=== PATIENT | male | born 1965 | race African-American/Black ===

== ENCOUNTER 2021-07-29 02:29 | Inpatient (IN) | payer MEDICAID, OTHER ==
[~2021-07-29] VITALS: Ht 170.2 cm; Wt 92.1 kg
[2021-07-29] MEDS ORDERED: SODIUM CHLORIDE 0.9% 1,000 ML IV ONE (03:00)
[2021-07-29 03:06] LABS: BASOPHILS % 0.4 % (0.0-2.0); EOSINOPHILS % 0.1 % (0.0-5.0); HEMATOCRIT. 41.3 % (42.0-52.0); HEMOGLOBIN. 14.1 g/dL (14.0-18.0); LYMPHOCYTES % 7.8 % (20.0-50.0); MEAN CORPUSCULAR HEMOGLOBIN 30.8 pg (28.0-32.0); MEAN CORPUSCULAR VOLUME 90.3 fL (80.0-94.0); NEUTROPHILS % 84.7 % (40.0-76.0); PLATELET 327 x1000/uL (130-400); RED BLOOD CELL COUNT 4.58 mill/uL (4.7-6.1); RED CELL DISTRIBUTION WIDTH 13.2 % (11.6-14.6)
[2021-07-29 03:17] LABS: CHLORIDE 99 mEq/L (98-107)
[2021-07-29 03:26] LABS: ETHANOL BLOOD < 10 mg/dL
[2021-07-29 04:53] LABS: CLARITY URINE CLEAR (CLEAR); COLOR URINE YELLOW (YELLOW); KETONES URINE NEGATIVE (NEGATIVE); LEUKOCYTE ESTERASE URINE 3+ (NEGATIVE); NITRITE URINE NEGATIVE (NEGATIVE); OCCULT BLOOD URINE TRACE (NEGATIVE); PROTEIN URINE TRACE (NEGATIVE); SPECIFIC GRAVITY URINE 1.009 (1.005-1.030)
[2021-07-29 05:20] LABS: *AMPHETAMINES SCREEN URINE NEGATIVE (NEGATIVE); *BARBITURATES SCREEN URINE NEGATIVE (NEGATIVE); *BENZODIAZEPINES SCREEN URINE NEGATIVE (NEGATIVE); *COCAINE SCREEN URINE NEGATIVE (NEGATIVE); CANNABINOID URINE SCREEN NEGATIVE (NEGATIVE); METHADONE URINE SCREEN NEGATIVE (NEGATIVE); OPIATES URINE SCREEN NEGATIVE (NEGATIVE); PHENCYCLIDINE URINE SCREEN NEGATIVE (NEGATIVE)
[2021-07-29] MEDS ORDERED: ACETAMINOPHEN 325MG TABLET PO ONE (05:45)
[2021-07-29] MEDS ORDERED: CEFTRIAXONE 1 G PREMIX 50 ML IV NR (06:15)
[2021-07-29] MEDS ORDERED: DOCUSATE SODIUM 100MG CAPSULE PO PRN (11:00)
[2021-07-29] MEDS ORDERED: GUAIFENESIN 200MG/10ML SUGAR FREE UDC PO PRN (11:00)
[2021-07-29] MEDS ORDERED: MAGNESIUM/ALUMINUM HYDROXIDE/SIMETHICONE 30ML UDC PO PRN (11:00)
[2021-07-29] MEDS ORDERED: LORAZEPAM 2MG/ML CPJ IV PRN (11:00)
[2021-07-29] MEDS ORDERED: NA PHOS,M-B/NA PHOS,DI-BA ENEMA 118ML PR PRN (11:00)
[2021-07-29] MEDS ORDERED: ONDANSETRON HCL 4MG/2ML INJ IV PRN (11:00)
[2021-07-29] MEDS ORDERED: DIPHENHYDRAMINE 50MG/ML VIAL IV PRN (11:00)
[2021-07-29] MEDS ORDERED: IPRATROPIUM/ALBUTEROL 0.5-3(2.5)MG/3ML NEB NEB PRN (11:00)
[2021-07-29] MEDS: SODIUM CHLORIDE 0.45% 1,000 ML IV SCH ×4 (11:23→11:59)
[2021-07-29 12:00] VITALS: BP 142/74
[2021-07-29] MEDS ORDERED: ENOXAPARIN 40MG/0.4ML SYR SUBCUT SCH (12:00)
[2021-07-29 12:59] LABS: CHLORIDE 100 mEq/L (98-107)
[2021-07-29 13:08] LABS: HDL CHOLESTEROL 28 mg/dL (40-59); LDL CHOLESTEROL 119 mg/dL (5-100)
[2021-07-29] MEDS: MORPHINE SULFATE 2 MG/ML CPJ (NOT FOR IM USE) IV PRN ×2 (13:23→18:17)
[2021-07-29] MEDS ORDERED: TAMS-11 MT (14:54)
[2021-07-29] MEDS ORDERED: PHEN300C6 PO (15:00)
[2021-07-29] MEDS ORDERED: METO-539 PO (15:01)
[2021-07-29] MEDS ORDERED: FINA5TAB11 PO (15:03)
[2021-07-29 16:00] VITALS: BP 139/72
[2021-07-29] MEDS: ENOXAPARIN 30MG/0.3ML SYR SUBCUT SCH (16:21)
[2021-07-29] MEDS: HYDROCODONE/ACETAMINOPHEN 5/325MG TABLET PO PRN ×2 (16:21→20:38)
[2021-07-29 20:00] VITALS: BP 170/113
[2021-07-29] MEDS: METOPROLOL TARTRATE 25MG TABLET PO SCH (20:38)
[2021-07-29] MEDS ORDERED: NALOXONE HCL 0.4MG/ML VIAL IV PRN (21:30)
[2021-07-30] VITALS: BP 162/101
[2021-07-30] MEDS: MORPHINE SULFATE 2 MG/ML CPJ (NOT FOR IM USE) IV PRN ×2 (00:54→05:36)
[2021-07-30] MEDS: CLONIDINE 0.1MG TABLET PO PRN (01:15)
[2021-07-30] MEDS: HYDRALAZINE 20MG/ML VIAL IV PRN (03:52)
[2021-07-30] MEDS: ACETAMINOPHEN 325MG TABLET PO PRN (05:53)
[2021-07-30 07:04] LABS: BASOPHILS % 0.2 % (0.0-2.0); EOSINOPHILS % 0.1 % (0.0-5.0); HEMATOCRIT. 40.9 % (42.0-52.0); HEMOGLOBIN. 13.7 g/dL (14.0-18.0); LYMPHOCYTES % 8.4 % (20.0-50.0); MEAN CORPUSCULAR HEMOGLOBIN 30.8 pg (28.0-32.0); MEAN CORPUSCULAR VOLUME 92.1 fL (80.0-94.0); MEAN PLATELET VOLUME 10.1 fl (7.4-10.4); NEUTROPHILS % 77.3 % (40.0-76.0); PLATELET 264 x1000/uL (130-400); RED BLOOD CELL COUNT 4.44 mill/uL (4.7-6.1); RED CELL DISTRIBUTION WIDTH 13.6 % (11.6-14.6)
[2021-07-30 07:21] LABS: CHLORIDE 94 mEq/L (98-107)
[2021-07-30 08:00] VITALS: BP 135/87
[2021-07-30] MEDS: ENOXAPARIN 30MG/0.3ML SYR SUBCUT SCH ×2 (08:40→20:10)
[2021-07-30] MEDS: METOPROLOL TARTRATE 25MG TABLET PO SCH (08:40)
[2021-07-30] MEDS: ASPIRIN 81MG EC TABLET PO SCH (08:40)
[2021-07-30] MEDS ORDERED: POTASSIUM CHLORIDE 20MEQ TABLET SR PO SCH (11:15)
[2021-07-30 12:00] VITALS: BP 146/100
[2021-07-30] MEDS: HYDROCODONE/ACETAMINOPHEN 5/325MG TABLET PO PRN ×2 (12:39→20:09)
[2021-07-30] MEDS: PIPERACILLIN/TAZOBACTAM 3.375 G in DEXTROSE 5% WATER 50 ML IV SCH ×2 (15:31→21:13)
[2021-07-30 16:00] VITALS: BP 148/98
[2021-07-30 20:00] VITALS: BP 166/99
[2021-07-30] MEDS: PHENYTOIN SODIUM EXTENDED 100MG CAPSULE PO SCH (20:08)
[2021-07-30] MEDS: METOPROLOL TARTRATE 50MG TABLET PO SCH (20:10)
[2021-07-31] VITALS (7 sets, daily range): BP systolic 132–158; BP diastolic 84–102
[2021-07-31] MEDS: HYDROCODONE/ACETAMINOPHEN 5/325MG TABLET PO PRN ×2 (01:24→21:03)
[2021-07-31] MEDS: CLONIDINE 0.1MG TABLET PO PRN (01:29)
[2021-07-31] MEDS: PIPERACILLIN/TAZOBACTAM 3.375 G in DEXTROSE 5% WATER 50 ML IV SCH ×3 (05:29→21:04)
[2021-07-31] MEDS: ASPIRIN 81MG EC TABLET PO SCH (09:05)
[2021-07-31] MEDS: METOPROLOL TARTRATE 50MG TABLET PO SCH ×3 (09:05→21:01)
[2021-07-31] MEDS: ENOXAPARIN 30MG/0.3ML SYR SUBCUT SCH ×2 (09:06→21:00)
[2021-07-31] MEDS ORDERED: METOPROLOL TARTRATE 50MG TABLET PO SCH (10:45)
[2021-07-31] MEDS: PHENYTOIN SODIUM EXTENDED 100MG CAPSULE PO SCH (21:03)
[2021-07-31] MEDS: SODIUM CHLORIDE 0.45% 1,000 ML IV SCH (21:17)
[2021-08-01] VITALS: BP 142/99
[2021-08-01] MEDS: HYDROCODONE/ACETAMINOPHEN 5/325MG TABLET PO PRN ×5 (01:55→22:37)
[2021-08-01 04:00] VITALS: BP 147/104
[2021-08-01] MEDS: PIPERACILLIN/TAZOBACTAM 3.375 G in DEXTROSE 5% WATER 50 ML IV SCH ×3 (05:28→22:36)
[2021-08-01] MEDS: METOPROLOL TARTRATE 50MG TABLET PO SCH ×3 (05:28→22:36)
[2021-08-01] MEDS: MORPHINE SULFATE 2 MG/ML CPJ (NOT FOR IM USE) IV PRN (05:29)
[2021-08-01 08:00] VITALS: BP 143/97
[2021-08-01] MEDS: ENOXAPARIN 30MG/0.3ML SYR SUBCUT SCH ×2 (09:38→22:38)
[2021-08-01] MEDS: ASPIRIN 81MG EC TABLET PO SCH (09:40)
[2021-08-01 10:19] LABS: HEMATOCRIT. 37.6 % (42.0-52.0); HEMOGLOBIN. 12.4 g/dL (14.0-18.0); MEAN CORPUSCULAR HEMOGLOBIN 30.5 pg (28.0-32.0); MEAN CORPUSCULAR VOLUME 92.7 fL (80.0-94.0); MEAN PLATELET VOLUME 10.2 fl (7.4-10.4); PLATELET 291 x1000/uL (130-400); RED BLOOD CELL COUNT 4.06 mill/uL (4.7-6.1); RED CELL DISTRIBUTION WIDTH 13.6 % (11.6-14.6)
[2021-08-01 11:02] LABS: CHLORIDE 92 mEq/L (98-107)
[2021-08-01] MEDS ORDERED: POTASSIUM CHLORIDE 20MEQ TABLET SR PO NR (11:30)
[2021-08-01 12:00] VITALS: BP 135/104
[2021-08-01 12:52] LABS: PLATELET ESTIMATE NORMAL
[2021-08-01 16:00] VITALS: BP 154/97
[2021-08-01] MEDS: SODIUM CHLORIDE 0.45% 1,000 ML IV SCH (18:21)
[2021-08-01 20:00] VITALS: BP 129/89
[2021-08-01] MEDS: ATORVASTATIN CALCIUM 10MG TABLET PO SCH (22:36)
[2021-08-01] MEDS: PHENYTOIN SODIUM EXTENDED 100MG CAPSULE PO SCH (22:38)
[2021-08-02] VITALS: BP 141/89
[2021-08-02] MEDS: HYDROCODONE/ACETAMINOPHEN 5/325MG TABLET PO PRN ×3 (02:51→13:09)
[2021-08-02 04:00] VITALS: BP 135/85
[2021-08-02] MEDS: PIPERACILLIN/TAZOBACTAM 3.375 G in DEXTROSE 5% WATER 50 ML IV SCH ×3 (06:43→21:11)
[2021-08-02] MEDS: METOPROLOL TARTRATE 50MG TABLET PO SCH ×3 (06:44→21:13)
[2021-08-02 07:17] LABS: HEMATOCRIT. 37.6 % (42.0-52.0); HEMOGLOBIN. 12.6 g/dL (14.0-18.0); MEAN CORPUSCULAR HEMOGLOBIN 30.5 pg (28.0-32.0); MEAN CORPUSCULAR VOLUME 91.4 fL (80.0-94.0); MEAN PLATELET VOLUME 10.3 fl (7.4-10.4); PLATELET 313 x1000/uL (130-400); RED BLOOD CELL COUNT 4.12 mill/uL (4.7-6.1); RED CELL DISTRIBUTION WIDTH 13.3 % (11.6-14.6)
[2021-08-02 08:00] VITALS: BP 137/93
[2021-08-02 08:00] LABS: CHLORIDE 90 mEq/L (98-107)
[2021-08-02] MEDS: ASPIRIN 81MG EC TABLET PO SCH (08:33)
[2021-08-02] MEDS: ENOXAPARIN 30MG/0.3ML SYR SUBCUT SCH ×2 (08:34→21:11)
[2021-08-02 10:40] LABS: ATYPICAL LYMPHOCYTES 1; PLATELET ESTIMATE NORMAL
[2021-08-02 12:00] VITALS: BP 140/82
[2021-08-02] MEDS: SODIUM CHLORIDE 0.45% 1,000 ML IV SCH (15:25)
[2021-08-02 16:00] VITALS: BP 135/75
[2021-08-02 20:00] VITALS: BP 159/102
[2021-08-02] MEDS: PHENYTOIN SODIUM EXTENDED 100MG CAPSULE PO SCH (21:10)
[2021-08-02] MEDS: ATORVASTATIN CALCIUM 10MG TABLET PO SCH (21:10)
[2021-08-02] MEDS: ACETAMINOPHEN 325MG TABLET PO PRN (21:14)
[2021-08-02] MEDS: MORPHINE SULFATE 2 MG/ML CPJ (NOT FOR IM USE) IV PRN (21:22)
[2021-08-03] VITALS: BP 140/92
[2021-08-03] MEDS: HYDROCODONE/ACETAMINOPHEN 5/325MG TABLET PO PRN ×4 (01:13→20:07)
[2021-08-03 04:00] VITALS: BP 144/71
[2021-08-03] MEDS: PIPERACILLIN/TAZOBACTAM 3.375 G in DEXTROSE 5% WATER 50 ML IV SCH ×3 (06:00→21:38)
[2021-08-03 06:26] LABS: CHLORIDE 93 mEq/L (98-107)
[2021-08-03 06:28] LABS: HEMATOCRIT. 39.3 % (42.0-52.0); HEMOGLOBIN. 13.3 g/dL (14.0-18.0); MEAN CORPUSCULAR HEMOGLOBIN 30.8 pg (28.0-32.0); MEAN CORPUSCULAR VOLUME 91.3 fL (80.0-94.0); MEAN PLATELET VOLUME 10.3 fl (7.4-10.4); PLATELET 393 x1000/uL (130-400); RED BLOOD CELL COUNT 4.31 mill/uL (4.7-6.1); RED CELL DISTRIBUTION WIDTH 13.5 % (11.6-14.6)
[2021-08-03] MEDS: METOPROLOL TARTRATE 50MG TABLET PO SCH ×3 (06:51→21:39)
[2021-08-03 08:00] VITALS: BP 163/104
[2021-08-03] MEDS: ENOXAPARIN 30MG/0.3ML SYR SUBCUT SCH ×2 (09:03→21:39)
[2021-08-03] MEDS: ASPIRIN 81MG EC TABLET PO SCH (09:03)
[2021-08-03] MEDS: CLONIDINE 0.1MG TABLET PO PRN (09:03)
[2021-08-03] MEDS: SODIUM CHLORIDE 0.45% 1,000 ML IV SCH (11:00)
[2021-08-03 12:00] VITALS: BP 149/109
[2021-08-03] MEDS ORDERED: LORAZEPAM 2MG/ML CPJ IV PRN (13:45)
[2021-08-03 16:00] VITALS: BP 154/102
[2021-08-03 20:00] VITALS: BP 171/113
[2021-08-03] MEDS: PHENYTOIN SODIUM EXTENDED 100MG CAPSULE PO SCH (21:39)
[2021-08-03] MEDS: ATORVASTATIN CALCIUM 10MG TABLET PO SCH (21:39)
[2021-08-03] MEDS ORDERED: NALOXONE HCL 0.4MG/ML VIAL IV PRN (22:00)
[2021-08-04] VITALS (8 sets, daily range): BP systolic 135–184; BP diastolic 88–117
[2021-08-04] MEDS: HYDROCODONE/ACETAMINOPHEN 5/325MG TABLET PO PRN ×2 (00:31→05:43)
[2021-08-04] MEDS: HYDRALAZINE 20MG/ML VIAL IV PRN (00:31)
[2021-08-04] MEDS: ACETAMINOPHEN 325MG TABLET PO PRN (01:39)
[2021-08-04 05:29] LABS: HEMOGLOBIN. 13.5 g/dL (14.0-18.0); MEAN CORPUSCULAR HEMOGLOBIN 30.9 pg (28.0-32.0); MEAN CORPUSCULAR VOLUME 91.4 fL (80.0-94.0); MEAN PLATELET VOLUME 9.7 fl (7.4-10.4); PLATELET 455 x1000/uL (130-400); RED BLOOD CELL COUNT 4.37 mill/uL (4.7-6.1); RED CELL DISTRIBUTION WIDTH 13.6 % (11.6-14.6)
[2021-08-04] MEDS: CLONIDINE 0.1MG TABLET PO PRN (05:43)
[2021-08-04] MEDS: METOPROLOL TARTRATE 50MG TABLET PO SCH ×3 (05:43→21:34)
[2021-08-04] MEDS: PIPERACILLIN/TAZOBACTAM 3.375 G in DEXTROSE 5% WATER 50 ML IV SCH ×2 (05:43→21:33)
[2021-08-04 06:01] LABS: CHLORIDE 93 mEq/L (98-107)
[2021-08-04 08:52] LABS: PLATELET ESTIMATE NORMAL
[2021-08-04] MEDS: ASPIRIN 81MG EC TABLET PO SCH (09:02)
[2021-08-04] MEDS: ENOXAPARIN 30MG/0.3ML SYR SUBCUT SCH ×2 (09:03→21:33)
[2021-08-04] MEDS: SODIUM CHLORIDE 0.9% 1,000 ML IV SCH (11:34)
[2021-08-04] MEDS: MORPHINE SULFATE 2 MG/ML CPJ (NOT FOR IM USE) IV PRN ×2 (11:35→20:40)
[2021-08-04 14:28] LABS: PLATELET ESTIMATE SLIGHTLY INCREASED
[2021-08-04] MEDS: ATORVASTATIN CALCIUM 10MG TABLET PO SCH (20:38)
[2021-08-04] MEDS: PHENYTOIN SODIUM EXTENDED 100MG CAPSULE PO SCH (20:38)
[2021-08-05] VITALS: BP 156/96
[2021-08-05 04:00] VITALS: BP 138/99
[2021-08-05] MEDS: MORPHINE SULFATE 2 MG/ML CPJ (NOT FOR IM USE) IV PRN ×3 (04:02→23:11)
[2021-08-05] MEDS: PIPERACILLIN/TAZOBACTAM 3.375 G in DEXTROSE 5% WATER 50 ML IV SCH ×3 (05:21→21:00)
[2021-08-05] MEDS: METOPROLOL TARTRATE 50MG TABLET PO SCH ×3 (05:23→21:00)
[2021-08-05 07:09] LABS: HEMATOCRIT. 39.6 % (42.0-52.0); HEMOGLOBIN. 13.1 g/dL (14.0-18.0); MEAN CORPUSCULAR HEMOGLOBIN 30.6 pg (28.0-32.0); MEAN CORPUSCULAR VOLUME 92.6 fL (80.0-94.0); MEAN PLATELET VOLUME 9.7 fl (7.4-10.4); PLATELET 502 x1000/uL (130-400); RED BLOOD CELL COUNT 4.27 mill/uL (4.7-6.1); RED CELL DISTRIBUTION WIDTH 13.6 % (11.6-14.6)
[2021-08-05 07:14] LABS: CHLORIDE 95 mEq/L (98-107)
[2021-08-05 08:00] VITALS: BP 152/97
[2021-08-05] MEDS: ASPIRIN 81MG EC TABLET PO SCH (08:39)
[2021-08-05] MEDS: ENOXAPARIN 30MG/0.3ML SYR SUBCUT SCH ×2 (08:40→20:04)
[2021-08-05] MEDS: SODIUM CHLORIDE 0.9% 1,000 ML IV SCH (08:45)
[2021-08-05] MEDS: HYDROCODONE/ACETAMINOPHEN 5/325MG TABLET PO PRN ×2 (08:47→20:05)
[2021-08-05 08:56] LABS: PLATELET ESTIMATE INCREASED
[2021-08-05 12:00] VITALS: BP 130/93
[2021-08-05 16:00] VITALS: BP 156/101
[2021-08-05 20:00] VITALS: BP 116/77
[2021-08-05] MEDS: PHENYTOIN SODIUM EXTENDED 100MG CAPSULE PO SCH (20:04)
[2021-08-05] MEDS: ATORVASTATIN CALCIUM 10MG TABLET PO SCH (20:04)
[2021-08-06] VITALS: BP 132/82
[2021-08-06] MEDS: HYDROCODONE/ACETAMINOPHEN 5/325MG TABLET PO PRN (02:42)
[2021-08-06] MEDS: SODIUM CHLORIDE 0.9% 1,000 ML IV SCH (02:42)
[2021-08-06 04:00] VITALS: BP 130/86
[2021-08-06] MEDS: MORPHINE SULFATE 2 MG/ML CPJ (NOT FOR IM USE) IV PRN ×2 (04:14→12:25)
[2021-08-06] MEDS: METOPROLOL TARTRATE 50MG TABLET PO SCH ×2 (05:16→13:05)
[2021-08-06] MEDS: PIPERACILLIN/TAZOBACTAM 3.375 G in DEXTROSE 5% WATER 50 ML IV SCH ×2 (05:16→13:03)
[2021-08-06 06:52] LABS: BASOPHILS % 0.4 % (0.0-2.0); LYMPHOCYTES % 13.4 % (20.0-50.0); MEAN CORPUSCULAR HEMOGLOBIN 31.2 pg (28.0-32.0); MEAN CORPUSCULAR VOLUME 91.4 fL (80.0-94.0); MEAN PLATELET VOLUME 9.5 fl (7.4-10.4); MONOCYTES % 11.3 % (2.0-8.0); NEUTROPHILS % 73.9 % (40.0-76.0); PLATELET 550 x1000/uL (130-400); RED BLOOD CELL COUNT 4.16 mill/uL (4.7-6.1); RED CELL DISTRIBUTION WIDTH 13.6 % (11.6-14.6)
[2021-08-06 07:18] LABS: CHLORIDE 94 mEq/L (98-107)
[2021-08-06] MEDS: ASPIRIN 81MG EC TABLET PO SCH (08:57)
[2021-08-06] MEDS: ENOXAPARIN 30MG/0.3ML SYR SUBCUT SCH (08:58)
[2021-08-06 11:49] VITALS: BP 140/88
[2021-08-06 11:50] VITALS: BP 136/99
[2021-08-06] MEDS ORDERED: PHENYTOIN SODIUM EXTENDED 100MG CAPSULE PO NR (15:30)
[2021-08-06 16:00] VITALS: BP 142/91
[2021-08-06 18:01] VITALS: BP 140/88
== END 2021-08-06 18:40 | disposition home or self-care (01) | DRG 720 ==
LOC: ER 02:29 → 8WST 06:17 → EDBEDREQ 07:46 → EDBEDREQTM 07:46 → ENRESERV 11:21
PROVIDERS: ADMIT Internal Medicine; ATTEND Internal Medicine
PROC: 4A00X4Z Measurement of Central Nervous Electrical Activity, External Approach (ICD-10-PCS; principal; 2021-08-05)
DX: A41.9 Sepsis, unspecified organism (principal); J96.00 Acute respiratory failure, unspecified whether with hypoxia or hypercapnia; E44.1 Mild protein-calorie malnutrition; I47.1 Supraventricular tachycardia; R64 Cachexia; E87.1 Hypo-osmolality and hyponatremia; G40.909 Epilepsy, unspecified, not intractable, without status epilepticus; I48.91 Unspecified atrial fibrillation; I11.0 Hypertensive heart disease with heart failure; I50.9 Heart failure, unspecified; Z20.822 Contact with and (suspected) exposure to COVID-19; E87.6 Hypokalemia; I25.10 Atherosclerotic heart disease of native coronary artery without angina pectoris; J43.9 Emphysema, unspecified; N39.0 Urinary tract infection, site not specified; F17.210 Nicotine dependence, cigarettes, uncomplicated; R41.82 Altered mental status, unspecified; R77.8 Other specified abnormalities of plasma proteins; B95.1 Streptococcus, group B, as the cause of diseases classified elsewhere; Z82.49 Family history of ischemic heart disease and other diseases of the circulatory system
CPT/HCPCS: 36415; 71045; 80048; 80053; 80061; 80185; 80305; 80320; 81003; 83605; 83735; 83880; 84145; 84484; 85025; 87426; 93005; 93306; 95816; 97116; 97162; 97530; 99291; C9803; J0360; J0696; J1650; J2060; J2270; J2543; J7030; J7060; G0480

== ENCOUNTER 2021-12-12 10:37 | Emergency (ER) | payer MEDICAID, OTHER ==
[~2021-12-12] VITALS: Ht 175.3 cm; Wt 100.0 kg
[~2021-12-12 10:37] MED LIST: FINA5TAB11 PO; METO-539 PO; PHEN300C6 PO; TAMS-11 MT
[2021-12-12] MEDS ORDERED: ACETAMINOPHEN 325MG TABLET PO STA (10:59)
[2021-12-12] MEDS ORDERED: PIPERACILLIN/TAZ 3.375G PREMIX 50 ML IV ONE (11:00)
[2021-12-12] MEDS ORDERED: VANCOMYCIN 1G PREMIX 200 ML IV ONE (11:00)
[2021-12-12] MEDS ORDERED: SODIUM CHLORIDE 0.9% 1,000 ML IV ONE ×2 (11:15)
[2021-12-12] MEDS ORDERED: SODIUM CHLORIDE 0.9% 500 ML IV ONE (11:15)
[2021-12-12 11:59] LABS: HEMATOCRIT. 44.4 % (42.0-52.0); HEMOGLOBIN. 15.1 g/dL (14.0-18.0); MEAN CORPUSCULAR HEMOGLOBIN 32.1 pg (28.0-32.0); MEAN CORPUSCULAR VOLUME 94.3 fL (80.0-94.0); MEAN PLATELET VOLUME 9.8 fl (7.4-10.4); PLATELET 220 x1000/uL (130-400); RED BLOOD CELL COUNT 4.71 mill/uL (4.7-6.1); RED CELL DISTRIBUTION WIDTH 13.5 % (11.6-14.6)
[2021-12-12 12:04] LABS: CHLORIDE 101 mEq/L (98-107)
[2021-12-12 12:05] LABS: PROTHROMBIN TIME 10.6 sec (9.6-11.0)
[2021-12-12 12:11] LABS: ETHANOL BLOOD < 10 mg/dL
[2021-12-12 12:18] LABS: PLATELET ESTIMATE NORMAL
[2021-12-12 13:00] LABS: COLOR URINE PALE YELLOW (YELLOW)
[2021-12-12 13:01] LABS: CLARITY URINE HAZY (CLEAR); KETONES URINE NEGATIVE (NEGATIVE); OCCULT BLOOD URINE TRACE (NEGATIVE); PROTEIN URINE NEGATIVE (NEGATIVE)
[2021-12-12 13:02] LABS: LEUKOCYTE ESTERASE URINE 1+ (NEGATIVE); NITRITE URINE POSITIVE (NEGATIVE); UROBILINOGEN URINE 0.2 E.U./dL (0.2-1.0)
[2021-12-12 13:56] LABS: *AMPHETAMINES SCREEN URINE NEGATIVE (NEGATIVE); *BARBITURATES SCREEN URINE NEGATIVE (NEGATIVE); *BENZODIAZEPINES SCREEN URINE NEGATIVE (NEGATIVE); *COCAINE SCREEN URINE NEGATIVE (NEGATIVE); CANNABINOID URINE SCREEN NEGATIVE (NEGATIVE); METHADONE URINE SCREEN NEGATIVE (NEGATIVE); OPIATES URINE SCREEN NEGATIVE (NEGATIVE); PHENCYCLIDINE URINE SCREEN NEGATIVE (NEGATIVE)
[2021-12-12] MEDS ORDERED: KETOROLAC 15MG/ML VIAL IV NR (19:45)
[2021-12-12 21:42] VITALS: BP 112/78
== END 2021-12-13 01:10 | disposition short-term general hospital (02) ==
LOC: ER 10:37 → EDBEDREQSVC 11:03 → EDBEDREQTM 11:03 → ER 12-13 01:10 → CANBEDREQ 12-14 13:42
DX: A41.9 Sepsis, unspecified organism (principal); N39.0 Urinary tract infection, site not specified; Z20.822 Contact with and (suspected) exposure to COVID-19; J44.9 Chronic obstructive pulmonary disease, unspecified; I10 Essential (primary) hypertension; I49.9 Cardiac arrhythmia, unspecified; Z98.890 Other specified postprocedural states
CPT/HCPCS: 36415; 70450; 71045; 80053; 80305; 80320; 81003; 82962; 83605; 83690; 84145; 85025; 85610; 87040; 87426; 87804; 93005; 96365; 96368; 96375; 99291; C9803; J1885; J2543; J3370; J7030; J7040; Z7610; G0480